=== PATIENT | female | born 1965 | race Caucasian/White ===

== ENCOUNTER 2017-01-01 14:16 | Emergency (ER) | payer OTHER, MEDICAID ==
[2017-01-01 16:04] LABS: BASOPHIL % 0.3 % (0-2); PLATELET COUNT 291 x10^3mcL (130-400); RED CELL DISTRIBUTION WIDTH 13.5 % (11.5-14.5)
[2017-01-01 16:12] LABS: CARBON DIOXIDE 31.2 mmol/L (21-32); CHLORIDE SERUM 104 mmol/L (98-107); CREATININE SERUM 0.9 mg/dL (0.6-1.0); GFR1 > 60 mL/min; GLUCOSE SERUM 90 mg/dL (74-106); POTASSIUM SERUM 4.4 mmol/L (3.5-5.1); SODIUM SERUM 141 mmol/L (136-145)
[2017-01-01 16:16] LABS: ALKALINE PHOSPHATASE 112 U/L (46-116); ALT/SGPT 26 U/L (14-59); AST/SGOT 22 U/L (15-37); BILIRUBIN TOTAL 0.3 mg/dL (0.20-1.00); TOTAL PROTEIN, SERUM 7.4 g/dL (6.4-8.2)
[2017-01-01 16:40] VITALS: BP 160/93
[2017-01-01 17:07] LABS: AMPHETAMINE QUAL UR NONE DETECTED (NEG <=1000)
== END 2017-01-01 17:48 | disposition left against medical advice (07) ==
LOC: ED 14:16
PROVIDERS: Emergency Medicine
DX: R07.9 Chest pain, unspecified (principal); F41.9 Anxiety disorder, unspecified; F13.20 Sedative, hypnotic or anxiolytic dependence, uncomplicated; R03.0 Elevated blood-pressure reading, without diagnosis of hypertension; M19.90 Unspecified osteoarthritis, unspecified site
CPT/HCPCS: 80307

== ENCOUNTER 2020-05-28 11:40 | Emergency (ER) | payer OTHER ==
[~2020-05-28] VITALS: Ht 167.6 cm; Wt 86.6 kg
[2020-05-28 11:50] VITALS: Ht 167.6 cm; Wt 86.6 kg
[2020-05-28 14:28] VITALS: BP 103/38
== END 2020-05-28 14:28 | disposition home or self-care (01) ==
LOC: ED 11:40
DX: M77.9 Enthesopathy, unspecified (principal)
CPT/HCPCS: J1885; Q0092